=== PATIENT | male | born 2000 | race Caucasian/White ===

== ENCOUNTER 2023-01-30 16:17 | Emergency (ER) | payer OTHER, BC | END 2023-01-30 18:00 | disposition home or self-care (01) | LOC: LL.ED 16:17 | DX: S43.492A Other sprain of left shoulder joint, initial encounter (principal); Z88.2 Allergy status to sulfonamides; Z88.0 Allergy status to penicillin; X50.0XXA Overexertion from strenuous movement or load, initial encounter; Y92.89 Other specified places as the place of occurrence of the external cause; Y99.0 Civilian activity done for income or pay | CPT/HCPCS: 73030-LT; 73221-LT; 99283; 99284 ==